=== PATIENT | male | born 1970 | race Caucasian/White ===

== ENCOUNTER 2016-11-09 02:30 | Emergency (ER) | payer MEDICAID ==
[~2016-11-09] VITALS: Ht 167.6 cm; Wt 63.5 kg
--- NOTE | 2016-11-09 03:04 | Emergency Room Report ---
History of Present Illness General Chief Complaint: Behavioral Complaint Source: Patient, EMS Present Illness HPI Is a 45-year-old male who present with multiple complaints. He lives in the [facility] area and somehow made his way up this way. He called 911 complaining of renal for it. Also said that he is out of his diabetes medication. He tell me that he take insulin, glyburide, metformin. Has been out for over 2 weeks. Also complaining of anxiety and pain. Wants a shot of Ativan and pain medication. No fever or chills but no nausea no vomiting. Said that he want a place to sleep also. Allergies: Coded Allergies: No Known Allergies (Unverified , 11/09/16) Patient History Past Medical History: see triage record, old chart reviewed, DM Past Surgical History: other Pertinent Family History: none Social History: Reports: smoking Immunizations: other Reviewed Nursing Documentation: PMH: Agreed, PSxH: Agreed Nursing Documentation-PMH Past Medical History: No History, Except For History Of Psychiatric Problem: Yes - Schizophrenia Review of Systems Eye: Denies: eye pain, blurred vision ENT: Denies: ear pain, nose congestion, throat swelling Respiratory: Denies: cough, shortness of breath Cardiovascular: Denies: chest pain, palpitations Gastrointestinal: Denies: abdominal pain, diarrhea, nausea, vomiting Musculoskeletal: Denies: back pain, joint pain Skin: Denies: rash Neurological: Denies: headache, numbness Endocrine: Denies: increased thirst, increased urine Hematologic/Lymphatic: Denies: easy bruising All Other Systems: negative except mentioned in HPI Physical Exam Vital Signs Date Time Temp Pulse Resp B/P (MAP) Pulse Ox O2 Delivery O2 Flow Rate FiO2 11/09/16 02:33 98.6 116 18 116/80 99 vitals with tachycardia Sp02 EP Interpretation: reviewed, normal General Appearance: well appearing, no apparent distress, alert Head: normocephalic, atraumatic Eyes: bilateral eye PERRL, bilateral eye EOMI ENT: hearing grossly normal, normal pharynx Neck: full range of motion, supple, no meningismus Respiratory: chest non-tender, lungs clear, normal breath sounds Cardiovascular #1: regular rate, rhythm, no murmur Gastrointestinal: normal bowel sounds, non tender, no mass, no organomegaly, no bruit, non-distended Musculoskeletal: back normal, gait/station normal, normal range of motion Psychiatric: mood/affect normal Skin: warm/dry Medical Decision Making Diagnostic Impression: Primary Impression: Opioid dependence Qualified Codes: F11.20 - Opioid dependence, uncomplicated Additional Impression: Behavioral disorder ER Course Patient presents with multiple complaints. Blood sugar was normal here. I am uncomfortable giving him narcotics and Ativan. When I told him this, patient is very agitated man. He start throwing things. No suicidal thought homicidal thought. We'll discharge home. Last Vital Signs Date Time Temp Pulse Resp B/P (MAP) Pulse Ox O2 Delivery O2 Flow Rate FiO2 11/09/16 02:33 98.6 116 18 116/80 99 Status: improved Disposition: HOME, SELF-CARE Condition: Stable Referrals: NOT CHOSEN IPA/,REFERRING (PCP) Patient Instructions: Self-Destructive Behavior Additional Instructions: stop using drugs and alcohol. Followup with your DrFani in 7 days. return if worse MADHAV CRAWFORD M.D. Nov 09, 2016 03:04
[2016-11-09 03:18] VITALS: BP 116/80
== END 2016-11-09 03:22 | disposition home or self-care (01) ==
LOC: EDBD 02:30 → EMR 02:40
DX: F11.20 Opioid dependence, uncomplicated (principal); F91.9 Conduct disorder, unspecified; F20.9 Schizophrenia, unspecified
CPT/HCPCS: 99282

== ENCOUNTER 2016-11-09 13:08 | Emergency (ER) | payer MEDICAID ==
[~2016-11-09] VITALS: Ht 167.6 cm; Wt 59.0 kg
[2016-11-09 13:10] VITALS: BP 138/78
[2016-11-09 13:50] VITALS: BP_SYST 138; BP_DIAS 75; BP_DIAS 78
--- NOTE | 2016-11-09 14:31 | Emergency Room Report ---
History of Present Illness General Chief Complaint: Medication Refill Source: Patient, EMS Present Illness HPI The patient is a 45-year-old male presenting for medication refill. He states that he has chronic back pain and anxiety and received [place] and Ativan but has not been able to follow up with primary doctor. He was seen in this emergency department last night for same complaint and did not receive any medications. He states that he last used methamphetamine yesterday but he has quit. Back pain is a 10/10 dull ache to the lower back. No known provoking or relieving factors. He denies any other symptoms including N, V, F, chills, incontinence, numbness, CP, SOB Allergies: Coded Allergies: No Known Allergies (Unverified , 11/09/16) Patient History Past Medical History: see triage record Pertinent Family History: none Reviewed Nursing Documentation: PMH: Agreed, PSxH: Agreed Review of Systems All Other Systems: negative except mentioned in HPI Physical Exam Vital Signs Date Time Temp Pulse Resp B/P (MAP) Pulse Ox O2 Delivery O2 Flow Rate FiO2 11/09/16 13:00 98.1 84 16 138/78 98 Room Air Sp02 EP Interpretation: reviewed, normal General Appearance: no apparent distress, alert, GCS 15, non-toxic Head: normocephalic, atraumatic Eyes: bilateral eye normal inspection, bilateral eye PERRL ENT: hearing grossly normal, normal pharynx, no angioedema, normal voice Neck: full range of motion, supple/symm/no masses Musculoskeletal: back normal, gait/station normal, normal range of motion, non- tender Neurologic: alert, responsive, sensory intact Psychiatric: anxious Skin: normal color, no rash, warm/dry, well hydrated Lymphatic: no adenopathy Medical Decision Making PA Attestation Dr. Holley is my supervising physician. Patient management was discussed with my supervising physician Diagnostic Impression: Primary Impression: Drug abuse Additional Impression: Encounter for medication refill ER Course The patient is a 45-year-old male presenting for medication refill. Differential diagnoses considered but not limited to drug abuse, psychosis, anxiety, chronic back pain, cauda equina syndrome, among others PE: unremarkable. NAD Walks without difficulty. Normal AROM of back. CURES report shows [place] and ativan prescription 10/22/16 He was told he needs to FU with PMD for medication refills. Safe pain medicine prescribing information given. ER precautions given Last Vital Signs Date Time Temp Pulse Resp B/P (MAP) Pulse Ox O2 Delivery O2 Flow Rate FiO2 11/09/16 13:10 98.1 16 138/78 98 Room Air 11/09/16 13:00 84 Status: improved Disposition: HOME, SELF-CARE Condition: Improved Referrals: NOT CHOSEN IPA/MD,REFERRING (PCP) Patient Instructions: Medicine Refill at the Emergency Department Additional Instructions: I discussed my findings with the patient. All questions and concerns have been answered. Treatment and medication compliance have been addressed. I advised the patient that they need to follow up withprimary doctor as soon as possible. Return to ED if symptoms worsen, new symptoms arise, or if needed for any reason. Patient verbalized understanding of discharge instructions. RADHA WATTS Nov 09, 2016 14:31
== END 2016-11-09 13:50 | disposition home or self-care (01) ==
LOC: EDBD 13:08 → EMR 13:30
DX: F19.10 Other psychoactive substance abuse, uncomplicated (principal); Z76.0 Encounter for issue of repeat prescription
CPT/HCPCS: 99283